=== PATIENT | female | born 1995 | race Caucasian/White ===

== ENCOUNTER 2020-10-17 14:53 | Emergency (ER) | payer OTHER, SELFPAY ==
--- NOTE | ~2020-10-17 | XR_ITS ---
EXAMINATION: XR CHEST CLINICAL INFORMATION: Chest pain COMPARISON: None TECHNIQUE: 2 views of the chest were obtained. FINDINGS: The cardiac silhouette may be slightly enlarged. Hilar and mediastinal contours are unremarkable. The lungs are clear. There is no pleural effusion or pneumothorax. There is a mild thoracolumbar scoliosis. XR/XR chest 2V IMPRESSION: Question slightly enlarged cardiac silhouette. Otherwise unremarkable exam.
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
[2020-10-17 15:02] VITALS: BP 147/78; PULSE 74; RESP 18; TEMP 37; O2SAT 99; BMI 55.6
--- NOTE | 2020-10-17 15:03 | ECG_ITS ---
Test Reason : CHEST PAIN Blood Pressure : / mmHG Vent. Rate : 073 BPM Atrial Rate : 073 BPM P-R Int : 120 ms QRS Dur : 092 ms QT Int : 382 ms P-R-T Axes : 014 057 -54 degrees QTc Int : 420 ms Sinus rhythm with occasional Premature ventricular complexes Cannot rule out Anterior infarct , age undetermined ST & T wave abnormality, consider inferolateral ischemia Abnormal ECG No previous ECGs available Referred By: Fabio Magaña Electronically Signed By:ANTHONY GARCIA
== END 2020-10-17 19:16 | disposition left against medical advice (07) ==
PROVIDERS: Emergency Provider Internal Medicine; PCP Internal Medicine
DX: R07.9 Chest pain, unspecified (principal)
CPT/HCPCS: 71046; 93005; 99283

== ENCOUNTER 2020-12-21 16:31 | Emergency (ER) | payer OTHER, SELFPAY ==
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
[2020-12-21 17:53] VITALS: BP 142/67; PULSE 88; RESP 16; TEMP 36.9; O2SAT 99; BMI 44.6
[2020-12-21 18:35] VITALS: BP 115/64; PULSE 88; RESP 17; TEMP 36.7; O2SAT 97
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
[2020-12-21] MEDS: Ibuprofen 600 MG TABLET PO (19:59)
[2020-12-21 20:15] LABS: Glucose Urine UA NEG (NEG); Leukocyte Esterase Urine NEG (NEG); Nitrite Urine NEG (NEG); Urine Blood NEG (NEG); Urine Ketones NEG (NEG); Urine Protein NEG (NEG-TRACE)
[2020-12-21 20:16] LABS: UPreg QC Valid YES; Urine Pregnancy NEGATIVE (NEGATIVE)
[2020-12-21 20:17] LABS: Appearance Urine HAZY; Color Urine YELLOW
== END 2020-12-21 22:10 | disposition home or self-care (01) ==
PROVIDERS: Emergency Provider Emergency Medicine; PCP Internal Medicine
DX: S13.4XXA Sprain of ligaments of cervical spine, initial encounter (principal); S70.01XA Contusion of right hip, initial encounter; V43.62XA Car passenger injured in collision with other type car in traffic accident, initial encounter; Y93.89 Activity, other specified; Y92.414 Local residential or business street as the place of occurrence of the external cause; Y99.9 Unspecified external cause status
CPT/HCPCS: 72125; 73502; 81003; 81025; 99284